=== PATIENT | male | born 1950 | race Hispanic/Latino ===

== ENCOUNTER 2024-08-31 05:47 | Day surgery (SDC) | payer OTHER ==
[2024-08-29 11:41] LABS: IMMATURE GRANULOCYTE ABSOLUTE 0.05 K/uL (0-1); NUCLEATED RED BLOOD CELLS 0.0 % (0.0-0.19); PLATELET COUNT (AUTO) 228 K/uL (130-400); RED BLOOD CELL COUNT(AUTO) 4.31 MIL/uL (4.50-6.20); RED CELL DISTRIBUTION WIDTH 14.2 % (11.0-15.5); WHITE BLOOD COUNT (AUTO) 5.8 K/uL (4.8-10.8)
[2024-08-29 11:46] LABS: CREATININE 1.1 mg/dL (0.5-1.3); GLOMERULAR FILTR. RATE CALC 70.0 mL/min (>90); GLUCOSE,RANDOM 125.0 mg/dL (70-105); SODIUM SERUM 131.0 mmol/L (136-145); UREA NITROGEN, BLOOD 21.0 mg/dL (7-18)
[2024-08-29 11:50] LABS: INR 0.96 (0.85-1.15)
[2024-08-29 11:55] VITALS: BP 170/80; PULSE 108; RESP 16; TEMP 97.2
[2024-08-29 12:35] LABS: APPEARANCE,URINE CLEAR (CLEAR); GLUCOSE, URINE (UA) NEGATIVE (NEGATIVE); LEUKOCYTE ESTERASE ,URINE NEGATIVE Leu/uL (NEGATIVE); NITRATE,URINE NEGATIVE (NEGATIVE); OCCULT BLOOD,URINE +- (TRACE) (NEGATIVE)
[2024-08-29 12:36] LABS: ADD UA MICROSCOPIC YES
--- NOTE | 2024-08-29 13:57 | HMCIMG ---
EXAM: CR Chest, 2 View. CLINICAL HISTORY: PRE OP COMPARISON: Radiograph dated March 18, 2016. FINDINGS: LUNGS: The lungs show no infiltrate or other acute finding. PLEURAL SPACES: No evidence of pleural effusion or pneumothorax. MEDIASTINUM: Cardiac size and mediastinal contours within normal limits. BONES: No acute osseous abnormality. IMPRESSION: No acute cardiopulmonary pathology is evident. /[place]
--- NOTE | 2024-08-29 14:19 | EKG ---
[facility] Test Date: 2024-08-29 Test Time: 11:07:44 Pat Name: JOSE ALEJANDRO PIZARRO Department: [facility] Room: [facility] Gender: M [employer] Ventilator: [id number] : 1950 Requested By: FRANSISCO UMANZOR Order Number: [id number] Reading MD: Gaby Brady Measurements Intervals [place] Rate: 98 P: 76 OR: 153 QRS: 26 QRSD: 84 T: 79 QT: 332 QTc: 423 Interpretive Statements Sinus rhythm Compared to ECG 03/18/2016 12:43:31 No significant changes Electronically Signed On 08-31-2024 14:25:45 CDT by Gaby Brady Please click the below link to view image of tracing.
[~2024-08-31] VITALS: Ht 180.3 cm; Wt 70.8 kg
[2024-08-31] VITALS (10 sets, daily range): BP systolic 157–195; BP diastolic 67–100; PULSE 71–102; RESP 13–18; TEMP 97.3–97.6
[~2024-08-31 05:47] MED LIST: LOSA100T59 PO; METO-408 PO; PRAV40TA62 PO; TAMS-55 PO; THIA50TA13 PO
[2024-08-31] MEDS: 0.9%NACL 1000ML 1,000 ML IV SCH (06:46)
[2024-08-31] MEDS ORDERED: LIDOCAINE HCL 400MG/20ML VIAL ONE (07:15)
[2024-08-31] MEDS ORDERED: HEParin-NS 1,000 UNIT/500 ML 1,000 ML IV ONE (07:16)
[2024-08-31] MEDS ORDERED: NITROGLYCERIN 50MG VIAL ONE (07:16)
[2024-08-31] MEDS ORDERED: IOHEXOL 350 MG/ML 100ML INFUS..BTL IV ONE (07:16)
[2024-08-31] MEDS ORDERED: MIDAZOLAM HCL 1 MG/ML 2ML VIAL ONE (07:28)
[2024-08-31] MEDS ORDERED: GLUCAGON 1MG KIT 1 MG ML IM PRN (09:30)
[2024-08-31] MEDS ORDERED: 0.9%NACL 1000ML 1,000 ML IV SCH (09:30)
[2024-08-31] MEDS ORDERED: DEXTROSE 50%-WATER 50 ML DISP.SYRIN IV PRN (09:30)
--- NOTE | 2024-08-31 09:34 | PRN ---
PROCEDURE NOTE Indications: WEST (anginal equivalent) Abnormal coronary CTA done on 07/06/2024 Mildly depressed left ventricle systolic function (LVEF 45-50% by echocardiogram done on 03/17/2024) Abdominal aortic aneurysm status post endoluminal graft placement done in February 2016 Procedures: Coronary angiogram, IVUS assessment of the left main Introduction: After informed written consent was obtained, the patient was brought to the Catheterization Lab in the usual fasting state. Following sterile prep and drape, a time out was performed, then moderate sedation was administered, 1mg of Versed and 50mcg of Fentanyl, then 1% Lidocaine was infiltrated into the right wrist. Using a Modified Seldinger technique, a 6Fr Sheath was inserted into the right radial artery. While under fluoroscopic guidance, diagnostic coronary catheters were advanced over a wire into the central circulation where they were aspirated, flushed and placed to pressure monitoring, once the wire was removed. Coronary Angio: The left and right coronary arteries were engaged with appropriate catheters and angiography was performed under continuous pressure monitoring. Cardiac Findings: Right dominant system LM: Medium caliber vessel with 60% stenosis in the proximal and distal LM. The vessel bifurcates into the LAD and LCX. LAD: Medium caliber vessel with diffuse 80% stenosis in the mid LAD. The rest of the vessel has mild luminal irregularities. AMBER 3 blood flow distally. Diagonal 1: Small caliber vessel mild luminal irregularities. LCx: Medium caliber vessel with 80% stenosis in the ostial LCX (napkin ring) and diffuse 60% stenosis in the mid LCX. OM1: Small caliber vessel mild luminal irregularities. OM2: Small caliber vessel with mild luminal irregularities RCA: Medium caliber vessel with 70-80% stenosis in the proximal RCA and 30% stenosis in the mid RCA. RPDA: Medium caliber vessel with mild luminal irregularities. RPLV: Medium caliber vessel mild luminal irregularities Medications given: Versed 1mg, Fentanyl 50mcg, nitroglycerin 200mcg, nicardipine 400mcg, heparin 5000 units Coronary Intervention: Catheter: JL3.5 diagnostic catheter Guidewire: 0.014 guidewire After reviewing the above-mentioned findings the decision was made to further evaluate the left main. The 0.014 runthrough guidewire was across the area stenosis and into the distal LAD. We then performed IVUS assessment of the left main which revealed 60% stenosis in the proximal and distal segments of the left main. The run-through guidewire, IVUS catheter, and JL3.5 catheter were then removed without issue. Complications: None Conscious Sedation Monitoring: Under my direct order and supervision, medication for moderate conscious sedation was administered by the nursing staff and the patients level of consciousness and physiological status was monitored by an independent trained nurse. Closure of Access Site: After the case completed the sheath was pulled and a TR band was deployed on the right radial artery without complication. Conclusion: 1. Dyspnea with exertion (anginal equivalent) 2. 3V + LM CAD (80% stenosis mid LAD, 80% stenosis ostial LCX, 70-80% stenosis proximal RCA) 3. Abnormal coronary CTA done on 07/06/2024 4. Mildly depressed left ventricle systolic function (LVEF 45-50% by echocardiogram done on 03/17/2024) 5. Abdominal aortic aneurysm status post endoluminal graft placement done in February 2016 Recommendation: 1. Continue goal-directed medical therapy 2. Wrist precautions 3. Please enact TR band removal per protocol 4. Start NS 100 mL/hour x3 hours. 5. Start aspirin 81 mg daily. 6. Okay to DC once the TR band removal protocol has been complete and the right wrist is soft, and free of bruising, bleeding, and/or hematoma formation. 7. We will consult CT surgery for CABG evaluation, as an outpatient 8. Please have the patient follow up with Dr. Ferguson in 1-2 weeks. FRANSISCO FERGUSON MD Aug 31, 2024 09:34
--- NOTE | 2024-08-31 11:35 | NUR ---
TR BAND: REMOVED TR BAND WITH BLEEDING NOTED. APPLIED D-STAT AND PRESSURE FOR 10 MINUTES. NO ACTIVE BLEEDING PRESENT AFTER HOLDING PRESSURE. TEGADERM APPLIED. NO SWELLING NOTED TO SURROUNDING AREA. RT WRIST SOFT TO TOUCH.
== END 2024-08-31 12:30 | disposition home or self-care (01) ==
LOC: DAH 05:47
PROVIDERS: ATTEND Internal Medicine Cardiovascular Disease
DX: R93.1 Abnormal findings on diagnostic imaging of heart and coronary circulation (principal); I25.118 Atherosclerotic heart disease of native coronary artery with other forms of angina pectoris; I10 Essential (primary) hypertension; E78.5 Hyperlipidemia, unspecified; I71.40 Abdominal aortic aneurysm, without rupture, unspecified; C61 Malignant neoplasm of prostate; R42 Dizziness and giddiness; Z79.899 Other long term (current) drug therapy; Z98.890 Other specified postprocedural states; Z82.49 Family history of ischemic heart disease and other diseases of the circulatory system; Z79.01 Long term (current) use of anticoagulants
CPT/HCPCS: 80048; 83880; 85025; 85610; 85730; 81001; 36415; 71045; 93005; 93454; 99156; 99157 ×3; 92978; Q9965 ×2; C1769 ×2; C1894 ×3; C1753; J3010; J3490 ×3; J7030; J1644 ×2; J2250; Q9967; A4215; A4222; A6260; A4221; A4663; A4216; A6206; A4606; A4223 ×2; 96360; 96361